=== PATIENT | female | born 1935 | race Caucasian/White ===

== ENCOUNTER 2017-11-09 17:55 | Inpatient (IN) | payer OTHER ==
[~2017-11-09] VITALS: Ht 149.9 cm; Wt 73.5 kg
[~2017-11-09 17:55] MED LIST: AMLODIPINE BESYL5 MG PO; BABY ASPIRIN81 M1 PO; BENTYL10 MG PO; CALCIUM 600 +1 EAC1 PO; COUMADIN,JANTOVE6 MG PO; COUMADIN4 MG PO; COUMADIN5 MG PO; CYANOCOBALAM1000 MCG PO; ELIQUIS5 MG PO; HYDROCODON-ACE1 EAC7 PO; KEPPRA500 MG PO; KLOR-CON M1010 MEQ PO; KLOR-CON M2020 MEQ PO; LASIX20 MG PO; LASIX40 MG PO; LIPITOR80 MG PO; LO-DOSE ASPIRIN81 M1 PO; MAGNESIUM OXID200 MG PO; METOPROLOL TART50 MG PO; NITROGLYCERIN PO; NITROSTAT,NITR0.4 M1 SL; NITROSTAT0.4 MG SL; NORCO 5/3251 TABLET PO; PROTONIX40 MG PO; QUESTRAN4 GM/PACKE PO; TOPROL XL50 MG PO; WARFARIN SODIUM5 MG PO; ZETIA10 MG PO
[2017-11-09] MEDS ORDERED: MAG-OXIDE400 MG PO (20:41)
[2017-11-09] MEDS ORDERED: PANTOPRAZOLE SO40 MG PO (20:41)
[2017-11-09] MEDS ORDERED: ATORVASTATIN CA80 MG PO (20:42)
[2017-11-09] MEDS ORDERED: CALCIUM 600 +1 EA11 PO (20:42)
[2017-11-09] MEDS ORDERED: FUROSEMIDE20 MG PO (20:44)
[2017-11-09] MEDS ORDERED: AMLODIPINE BESY10 MG PO (20:45)
[2017-11-09 21:38] LABS: BASOPHIL (%) 0.4 % (0-1); EOSINOPHIL (%) 0.3 % (0-5); HEMATOCRIT 31.5 % (36.0-46.0); HEMOGLOBIN 10.1 G/DL (11.9-15.5); IMMATURE GRANULOCYTE (%) 0.4 % (0.0-0.7); LYMPHOCYTE COUNT 0.9 K/uL (1.0-2.8); MCH 27.7 PG (29.0-34.0); MCHC 32.1 G/DL (30.0-36.0); MCV 86.5 FL (83-99); MONOCYTE (%) 4.1 % (3-12); MONOCYTE COUNT 0.4 K/uL (0-0.8); NEUTROPHIL (%) 85.8 % (45-76); NEUTROPHIL COUNT 8.1 K/uL (1.8-6.4); PLATELET COUNT 210 K/uL (156-360); RBC DIS.WIDTH-CV 15.4 % (11.8-14.6); RBC DIS.WIDTH-SD 49.1 % (39-53); RED BLOOD COUNT 3.64 M/uL (3.80-5.20); WHITE BLOOD COUNT 9.4 K/uL (4.1-10.2)
[2017-11-09 21:48] LABS: ALBUMIN 3.9 g/dL (3.2-4.8); CHLORIDE 107 mEq/L (99-109); POTASSIUM 3.9 mEq/L (3.7-5.4); SODIUM 141 mEq/L (136-147)
[2017-11-09 21:49] LABS: MAGNESIUM 1.3 mg/dL (1.3-2.7)
[2017-11-09 21:51] LABS: GLUCOSE 123 mg/dL (70-99); TOTAL PROTEIN 6.5 g/dL (6.4-8.3)
[2017-11-09 21:52] LABS: TOTAL BILIRUBIN 0.7 mg/dL (0.0-1.0)
[2017-11-09 21:54] LABS: ALKALINE PHOSPHATASE 125 IU/L (3-129); CREATININE 0.9 mg/dL (0.6-1.3); GFR ESTIMATE (CALCULATED) > 59 mL/min/; PHOSPHORUS 3.4 mg/dL (2.5-4.9)
[2017-11-09 21:55] LABS: UREA NITROGEN (BUN) 29 mg/dL (9-23)
[2017-11-09 21:56] LABS: AST (GOT) 26 IU/L (2-34)
[2017-11-09 21:57] LABS: ALT (GPT) 16 IU/L (3-49)
[2017-11-09 22:25] VITALS: BP 139/92
[2017-11-10] VITALS (7 sets, daily range): BP systolic 131–157; BP diastolic 61–77
[2017-11-10 08:51] LABS: HEMATOCRIT 28.9 % (36.0-46.0); HEMOGLOBIN 9.2 G/DL (11.9-15.5); MCH 28.4 PG (29.0-34.0); MCHC 31.8 G/DL (30.0-36.0); MCV 89.2 FL (83-99); PLATELET COUNT 189 K/uL (156-360); RBC DIS.WIDTH-CV 15.8 % (11.8-14.6); RBC DIS.WIDTH-SD 52.1 % (39-53); RED BLOOD COUNT 3.24 M/uL (3.80-5.20)
[2017-11-10 09:11] LABS: CHLORIDE 106 MEQ/L (99-109); CREATININE 0.7 MG/DL (0.6-1.3); GFR ESTIMATE (CALCULATED) > 59 mL/min/; GLUCOSE 109 mg/dL (70-99); POTASSIUM 4.1 MEQ/L (3.7-5.4); SODIUM 140 MEQ/L (136-147); UREA NITROGEN (BUN) 24 mg/dL (9-23)
[2017-11-10 11:48] LABS: BASE EXCESS 2.3 mEq/L (-3 to +3); BICARBONATE 26.4 mEq/L (22-26); CARBOXY HGB 1.2 % (0-5); COMMENTS - BLOOD GASES A+C+; DEVICE NC; METHEMOGLOBIN 1.7 % (0-1.5); O2 FLOW 4 L/MIN; PCO2 38 mm Hg (35-45); PO2 125 mm Hg (80-100); SITE LR; TOTAL RESP RATE 21 resp/min; pH 7.45 (7.35-7.45)
[2017-11-11] VITALS (7 sets, daily range): BP systolic 131–193; BP diastolic 60–81
[2017-11-11 05:42] LABS: HEMATOCRIT 25.7 % (36.0-46.0); HEMOGLOBIN 8.1 G/DL (11.9-15.5); MCH 28.3 PG (29.0-34.0); MCHC 31.5 G/DL (30.0-36.0); MCV 89.9 FL (83-99); PLATELET COUNT 165 K/uL (156-360); RBC DIS.WIDTH-CV 15.7 % (11.8-14.6); RBC DIS.WIDTH-SD 51.6 % (39-53); RED BLOOD COUNT 2.86 M/uL (3.80-5.20); WHITE BLOOD COUNT 4.9 K/uL (4.1-10.2)
[2017-11-11 06:03] LABS: CHLORIDE 107 MEQ/L (99-109); GFR ESTIMATE (CALCULATED) 56 mL/min/; GLUCOSE 101 mg/dL (70-99); SODIUM 139 MEQ/L (136-147); UREA NITROGEN (BUN) 21 mg/dL (9-23)
[2017-11-11 15:08] LABS: FERRITIN 37 NG/ML (10-291)
[2017-11-11 15:13] LABS: FOLIC ACID (FOLATE) 9.2 NG/ML (5.0-22.0)
[2017-11-11 15:35] LABS: IRON 22 MCG/DL (35-150); TRANSFERRIN (TIBC) 253.7 mg/dL (215-380); TRANSFERRIN SATUR. 9 % (20-55)
[2017-11-12] VITALS (7 sets, daily range): BP systolic 129–152; BP diastolic 62–67
[2017-11-12 05:51] LABS: BASOPHIL (%) 0.6 % (0-1); EOSINOPHIL (%) 1.1 % (0-5); EOSINOPHIL COUNT 0.1 K/uL (0-0.3); HEMATOCRIT 28.2 % (36.0-46.0); HEMOGLOBIN 8.8 G/DL (11.9-15.5); IMMATURE GRANULOCYTE (%) 0.3 % (0.0-0.7); LYMPHOCYTE (%) 18.9 % (15-42); LYMPHOCYTE COUNT 1.3 K/uL (1.0-2.8); MCH 27.8 PG (29.0-34.0); MCHC 31.2 G/DL (30.0-36.0); MCV 89.2 FL (83-99); MONOCYTE (%) 9.8 % (3-12); MONOCYTE COUNT 0.7 K/uL (0-0.8); NEUTROPHIL (%) 69.3 % (45-76); NEUTROPHIL COUNT 4.6 K/uL (1.8-6.4); PLATELET COUNT 174 K/uL (156-360); RBC DIS.WIDTH-CV 15.5 % (11.8-14.6); RBC DIS.WIDTH-SD 51.3 % (39-53); RED BLOOD COUNT 3.16 M/uL (3.80-5.20); WHITE BLOOD COUNT 6.6 K/uL (4.1-10.2)
[2017-11-12 06:25] LABS: CHLORIDE 103 MEQ/L (99-109); CREATININE 0.8 MG/DL (0.6-1.3); GFR ESTIMATE (CALCULATED) > 59 mL/min/; GLUCOSE 108 mg/dL (70-99); POTASSIUM 4.1 MEQ/L (3.7-5.4); SODIUM 138 MEQ/L (136-147); UREA NITROGEN (BUN) 18 mg/dL (9-23)
[2017-11-13] VITALS (7 sets, daily range): BP systolic 123–158; BP diastolic 59–77
[2017-11-13 05:33] LABS: BASOPHIL (%) 0.7 % (0-1); EOSINOPHIL (%) 1.3 % (0-5); EOSINOPHIL COUNT 0.1 K/uL (0-0.3); HEMOGLOBIN 8.4 G/DL (11.9-15.5); IMMATURE GRANULOCYTE (%) 0.5 % (0.0-0.7); LYMPHOCYTE (%) 18.5 % (15-42); LYMPHOCYTE COUNT 1.1 K/uL (1.0-2.8); MCH 27.5 PG (29.0-34.0); MCHC 31.1 G/DL (30.0-36.0); MCV 88.2 FL (83-99); MONOCYTE (%) 8.8 % (3-12); MONOCYTE COUNT 0.5 K/uL (0-0.8); NEUTROPHIL (%) 70.2 % (45-76); NEUTROPHIL COUNT 4.3 K/uL (1.8-6.4); PLATELET COUNT 165 K/uL (156-360); RBC DIS.WIDTH-CV 15.1 % (11.8-14.6); RBC DIS.WIDTH-SD 48.8 % (39-53); RED BLOOD COUNT 3.06 M/uL (3.80-5.20); WHITE BLOOD COUNT 6.1 K/uL (4.1-10.2)
[2017-11-13 06:17] LABS: CHLORIDE 101 MEQ/L (99-109); CREATININE 0.8 MG/DL (0.6-1.3); GFR ESTIMATE (CALCULATED) > 59 mL/min/; GLUCOSE 94 mg/dL (70-99); POTASSIUM 4.1 MEQ/L (3.7-5.4); SODIUM 136 MEQ/L (136-147); UREA NITROGEN (BUN) 22 mg/dL (9-23)
[2017-11-13] MEDS ORDERED: FERROUS SULFAT325 MG PO (10:25)
[2017-11-13] MEDS ORDERED: BISAC-EVAC10 MG PR (10:26)
[2017-11-13] MEDS ORDERED: DOCUSATE SODIU100 MG PO (10:26)
[2017-11-13] MEDS ORDERED: TYLENOL REGULA325 MG PO (10:26)
[2017-11-13] MEDS ORDERED: Salonpas 4% Patch TD (10:27)
[2017-11-13] MEDS ORDERED: POLYETHYLENE GL17 GM PO (10:27)
[2017-11-13] MEDS ORDERED: FOLIC ACID1 MG PO (10:28)
[2017-11-13] MEDS ORDERED: VITAMIN B122500 MCG PO (10:29)
[2017-11-13] MEDS ORDERED: HYDROCODON-ACE1 EAC7 PO (10:30)
[2017-11-13] MEDS ORDERED: CITRATE OF MAG296 ML PO (10:30)
[2017-11-14] VITALS (7 sets, daily range): BP systolic 123–151; BP diastolic 57–70
[2017-11-14 06:20] LABS: HEMOGLOBIN 8.6 G/DL (11.9-15.5); MCH 27.9 PG (29.0-34.0); MCHC 31.9 G/DL (30.0-36.0); MCV 87.7 FL (83-99); PLATELET COUNT 169 K/uL (156-360); RBC DIS.WIDTH-CV 15.1 % (11.8-14.6); RBC DIS.WIDTH-SD 48.1 % (39-53); RED BLOOD COUNT 3.08 M/uL (3.80-5.20); WHITE BLOOD COUNT 5.8 K/uL (4.1-10.2)
[2017-11-15 04:00] VITALS: BP 150/69
[2017-11-15 07:57] VITALS: BP 136/62
[2017-11-15 09:39] LABS: HEMATOCRIT 28.3 % (36.0-46.0); HEMOGLOBIN 9.1 G/DL (11.9-15.5); MCH 28.5 PG (29.0-34.0); MCHC 32.2 G/DL (30.0-36.0); MCV 88.7 FL (83-99); PLATELET COUNT 182 K/uL (156-360); RBC DIS.WIDTH-CV 15.4 % (11.8-14.6); RBC DIS.WIDTH-SD 49.1 % (39-53); RED BLOOD COUNT 3.19 M/uL (3.80-5.20); WHITE BLOOD COUNT 4.7 K/uL (4.1-10.2)
[2017-11-15 09:57] LABS: CHLORIDE 99 MEQ/L (99-109); POTASSIUM 3.6 MEQ/L (3.7-5.4); SODIUM 137 MEQ/L (136-147)
[2017-11-15 10:21] LABS: CREATININE 0.7 MG/DL (0.6-1.3); GFR ESTIMATE (CALCULATED) > 59 mL/min/; UREA NITROGEN (BUN) 15 mg/dL (9-23)
[2017-11-15 10:22] LABS: GLUCOSE 189 mg/dL (70-99)
[2017-11-15 13:06] VITALS: BP 140/60
[2017-11-15 16:02] VITALS: BP 157/68
[2017-11-15 20:24] VITALS: BP 167/73
[2017-11-15 23:52] VITALS: BP 124/58
[2017-11-16 04:00] VITALS: BP 138/67
[2017-11-16 05:46] LABS: BASOPHIL (%) 0.8 % (0-1); EOSINOPHIL (%) 2.2 % (0-5); EOSINOPHIL COUNT 0.1 K/uL (0-0.3); IMMATURE GRANULOCYTE (%) 0.2 % (0.0-0.7); LYMPHOCYTE (%) 19.1 % (15-42); LYMPHOCYTE COUNT 0.9 K/uL (1.0-2.8); MCHC 32.1 G/DL (30.0-36.0); MONOCYTE (%) 9.5 % (3-12); MONOCYTE COUNT 0.5 K/uL (0-0.8); NEUTROPHIL (%) 68.2 % (45-76); NEUTROPHIL COUNT 3.4 K/uL (1.8-6.4); PLATELET COUNT 199 K/uL (156-360); RBC DIS.WIDTH-CV 15.4 % (11.8-14.6); RBC DIS.WIDTH-SD 48.4 % (39-53); RED BLOOD COUNT 3.22 M/uL (3.80-5.20); WHITE BLOOD COUNT 4.9 K/uL (4.1-10.2)
[2017-11-16 06:13] LABS: CHLORIDE 100 MEQ/L (99-109); CREATININE 0.7 MG/DL (0.6-1.3); GFR ESTIMATE (CALCULATED) > 59 mL/min/; GLUCOSE 93 mg/dL (70-99); POTASSIUM 3.7 MEQ/L (3.7-5.4); SODIUM 139 MEQ/L (136-147); UREA NITROGEN (BUN) 15 mg/dL (9-23)
[2017-11-16 08:11] VITALS: BP 178/74
[2017-11-16 11:14] VITALS: BP 129/59
[2017-11-16 16:06] VITALS: BP 173/72
[2017-11-16 19:23] VITALS: BP 154/68
[2017-11-16 23:27] VITALS: BP 111/51
[2017-11-17 03:40] VITALS: BP 125/61
[2017-11-17 08:11] VITALS: BP 157/70
[2017-11-17 11:41] VITALS: BP 98/55
== END 2017-11-17 14:05 | DRG 184 ==
LOC: EME 17:55 → EDOF 21:01 → 4EAST 21:01 → ENRESERV 21:02 → 4EAST 22:20 → ENRESERV 11-12 11:57 → CANRESERV 11-12 18:07 → ENRESERV 11-12 18:07 → 3EAST 11-13 20:25
PROVIDERS: Hospitalist; Internal Medicine; Physician Assistant; Surgery
DX: S22.42XA Multiple fractures of ribs, left side, initial encounter for closed fracture (principal); S32.010A Wedge compression fracture of first lumbar vertebra, initial encounter for closed fracture; S27.0XXA Traumatic pneumothorax, initial encounter; W03.XXXA Other fall on same level due to collision with another person, initial encounter; W01.190A Fall on same level from slipping, tripping and stumbling with subsequent striking against furniture, initial encounter; J98.11 Atelectasis; R09.02 Hypoxemia; J90 Pleural effusion, not elsewhere classified; D50.9 Iron deficiency anemia, unspecified; K59.03 Drug induced constipation; T40.605A Adverse effect of unspecified narcotics, initial encounter; K56.7 Ileus, unspecified; I11.0 Hypertensive heart disease with heart failure; I50.9 Heart failure, unspecified; I48.2 Chronic atrial fibrillation; I25.10 Atherosclerotic heart disease of native coronary artery without angina pectoris; K21.9 Gastro-esophageal reflux disease without esophagitis; E78.5 Hyperlipidemia, unspecified; M47.9 Spondylosis, unspecified; G40.909 Epilepsy, unspecified, not intractable, without status epilepticus; R00.1 Bradycardia, unspecified; R06.02 Shortness of breath; R26.9 Unspecified abnormalities of gait and mobility; F32.9 Major depressive disorder, single episode, unspecified; Z80.0 Family history of malignant neoplasm of digestive organs; Z80.1 Family history of malignant neoplasm of trachea, bronchus and lung; Z86.73 Personal history of transient ischemic attack (TIA), and cerebral infarction without residual deficits; Z90.710 Acquired absence of both cervix and uterus; Z95.1 Presence of aortocoronary bypass graft
CPT/HCPCS: 36600; 71045; 71250; 74018; 80048; 80053; 82272; 82607; 82728; 82746; 82803; 82948; 83540; 83735; 83921 90; 84100; 84443; 84466; 85025; 85027; 94010; 94799; 97530 GO; 99281; 99285; C1755; J0360; J1170; J1885; J2270; J2405; J3420